=== PATIENT | male | born 1955 | race Caucasian/White ===

== ENCOUNTER 2016-06-23 07:11 | Day surgery (SDC) | payer OTHER ==
--- NOTE | 2016-06-22 14:19 | PCM.HPANE ---
Patient Data Surgeon Admitting Provider: Attending Provider:Hu Jain MD Primary Care Physician:Smooth Williamson MD Other Provider:[facility] Reason for Visit Ulcerative Colitis Ht/WT & BMI Body Mass Index Allergies Coded Allergies: Cephalosporins (Verified Allergy, Mild, Rash, 06/22/16) amoxicillin (Verified Allergy, Mild, Rash, 06/22/16) Penicillins (Verified Allergy, Unknown, 06/22/16) Past Anesthesia History Anesthesia History: Denies:: Abnormal Airway, Anesthesia Reactions, Difficult Intubation, Fam Anesthesia Reaction, Fam Malignant Hypertherm, Malignant Hyperthermia Diabetes History Hx Diabetes?: No MRSA MRSA: No Medications Reported Medications Ranitidine 150 Mg [id number] Mg PO DAILY Ref 0 06/22/16 HydrOXYzine HCl 10 Mg Ufhtjy48 Mg PO BID PRN For Itching Ref 0 06/22/16 Bupropion 100 Mg Zlltyv596 Mg PO BID Ref 0 06/22/16 Aripiprazole (Abilify)2 Mg Tablet2 Mg PO DAILY Ref 0 06/22/16 Acetaminophen (Tylenol)325 Mg [id number] Mg PO 08/28/14 Omeprazole Magnesium (Omeprazole)20 Mg Capsule.dr20 Mg PO DAILY 30 Days Ref 0 08/27/14 Aripiprazole (Abilify)5 Mg Tablet5 Mg PO DAILY 30 Days Ref 0 06/05/14 Citalopram 20 Mg Ugxdiz98 Mg PO DAILY 30 Days Ref 0 01/04/14 Multivitamin (Multi-Day Vitamins)1 Each Tablet1 Each PO DAILY 01/03/14 Lisinopril / HCTZ 20-12.5 mg 1 Each Tablet1 Each PO DAILY 30 Days Ref 0 01/03/14 Discontinued Reported Medications Hydrocortisone Acetate 25 Mg Supp.rect25 Mg RC DAILY 01/03/14 Trazodone 50 Mg Bisbjy13 Mg PO HS 30 Days Ref 0 06/05/14 History HEENT History: Denies:: Abnormal Airway Difficult Intubation Dysphagia Hearing Problem Hx of Heart Problems?: Yes Cardiovascular History: Positive for:: Chest Pain (NON-CARDIAC RELATED ) Hypertension Denies:: AICD Atrial Fibrillation Congestive Heart Failure Pacemaker Valvular Heart Disease Hx of Respiratory Problem?: No Respiratory History: Denies:: Asthma COPD Cough Hemoptysis Pneumonia Tuberculosis Neurological History: Denies:: CVA Hx of GI Problems?: Yes Gastrointestinal History: Positive for:: Gastroesphageal Reflux (TAKES OMEPRAZOLE ) Rectal Bleeding (BRBPR FROM HEMORRHOIDS ) Denies:: Cirrhosis Diverticulitis Hiatal Hernia Musculoskeletal History: Denies:: Joint Replacement Psycho Social History: Positive for:: Anxiety Hx Depression (CHRONIC ) Hx Surgeries?: Yes (BOIL REMOVAL ) Hx Any Other Health Problems?: Yes History Blood Transfusions: Denies:: Blood Transfuse Reaction Blood Transfusions Hx Diabetes: No Hx Alcohol Use: Yes (RARE)Hx Substance Use: No Smoking Status: Never Smoker Have You Smoked inLast 12 mo: No Stop/Bang Risk Assessment Category Category 1A: Patient has history of documented sleep apnea, and HAS NOT received any narcotic, sedative or anesthesia administration during this stay. Category 1B: Patient has history of documented sleep apnea, and HAS received any narcotic , sedative or anesthesia administration during this stay Category 2: Patient has SUSPECTED Obstructive Sleep Apnea, and HAS received any narcotic , sedative or anesthesia administration during this stay. Category 3: Patient has SUSPECTED Obstructive Sleep Apnea and HAS NOT received narcotic, sedative or anesthesia administration during this stay. Category 4: Outpatient in Procedural Areas with known sleep apnea or who screen positive for High Risk via the STOP/BANG questionnaire. Exam Exam General Appearance: Alert, Oriented X3 Plan Impression Patient chart reviewed. Aldo Byrne MD Jun 22, 2016 14:19
[~2016-06-23] VITALS: Ht 170.2 cm; Wt 135.0 kg
[~2016-06-23 07:11] MED LIST: ACET-1890 PO; ARIP2TAB10 PO; ARIP5TAB5 PO; BUPR100T15 PO; CITA20TA11 PO; HYDR-3605 PO; HYDR25SU7 RC; LISI1TAB9 PO; Lactated Ringer's 1,000 ML IV ONE; MULT-285 PO; OMEP-113 PO; RANI150C4 PO
[2016-06-23] MEDS ORDERED: Propofol 10,000 mCg/mL 20 mL Inj ONE (07:12)
[2016-06-23] MEDS ORDERED: fentaNYL-PF 50 mCg/mL 2 mL Inj ONE (07:12)
[2016-06-23 07:28] VITALS: BP 150/83; PULSE 73; RESP 14; O2SAT 95
[2016-06-23 08:53] VITALS: BP 135/69; PULSE 66; RESP 17; O2SAT 96
[2016-06-23] MEDS ORDERED: Lactated Ringer's 1,000 ML IV SCH (08:54)
--- NOTE | 2016-06-23 08:54 | PCM.ANEP1 ---
Post Anesthesia Phase 1 PACU Phase 1 Assessment Vital Signs Vital Signs Date Time Temp Pulse Resp B/P Pulse Ox O2 Delivery O2 Flow Rate FiO2 06/23/16 07:28 73 14 150/83 95 Room Air Anesthetic Administered: GA Level of Alertness: Awake, talking JEAN's with Equal Strength: Yes Pain: No Nausea or Vomiting: No Oxygen Delivery: Room Air Lungs: Normal Air Movement Aldo Byrne MD Jun 23, 2016 08:54
[2016-06-23] MEDS ORDERED: Ondansetron 2 mg/mL 2 mL Inj IVPUSH PRN (08:55)
[2016-06-23] MEDS ORDERED: MetoCLOpramide 5 mg/mL 2 mL Inj IVPUSH PRN (08:55)
--- NOTE | 2016-06-23 08:55 | PCM.ANEP2 ---
Post Anesthesia Evaluation ASA/CMS Post Anesthesia VS in Patient's Normal Range?: Yes Resp Stable; Airway Patent?: Yes CV Function & Hydration Stable: Yes Mental Status Recovered?: Yes Pain control Satisfactory?: Yes N/V Control Satisfactory?: Yes Aldo Byrne MD Jun 23, 2016 08:55
[2016-06-23 09:10] VITALS: BP 161/86; PULSE 68; RESP 14; O2SAT 97
--- NOTE | 2016-06-23 09:13 | ENDO ---
[address] [address] ENDOSCOPY PROCEDURE PATIENT: KEITH MCKEON : 1955 MR#: [id number] ADMIT: 06/23/2016 JOB ID: [id number] DATE OF SERVICE: 06/23/2016 PRIMARY PROVIDER: Smooth Williamson MD. PROCEDURE: Colonoscopy with hot snare polypectomy and random biopsies. INDICATIONS: A 61-year-old male with a longstanding history of ulcerative colitis and a personal history of colon polyps. EQUIPMENT: [id number]. SEDATION: Monitored anesthesia as provided by Dr. Chris Byrne. COMPLICATIONS: None identified. BOWEL PREPARATION: Fair, adequate exam. PROCEDURE INFORMATION: After the risks and benefits were explained, written and verbal informed consent was obtained. The patient was brought into the endoscopy suite and placed into the left lateral decubitus position. Sedation was achieved using the above-stated medications with the addition of oxygen via nasal cannula. A digital rectal examination was accomplished. Mild internal hemorrhoids noted. The scope was introduced into the rectum and advanced to the cecum as identified by the appendiceal orifice and ileocecal valve. The scope was slowly withdrawn to carefully examine the mucosa for any defects or lesions. Retroflexed views were accomplished in the rectum. The colon was decompressed. The scope removed from the patient who tolerated the procedure well. FINDINGS: No evidence of proctitis. No colitis throughout. Segmental biopsies were taken from the ascending, transverse, descending, sigmoid and finally rectum and submitted separately. There was an approximately 8-9 mm sessile polyp removed with hot snare from the cecum. There were three smaller polyps removed from the vicinity of the hepatic flexure also with hot snare. We used a combination of the standard and jumbo snares for these polyps. No other significant pathology was appreciated throughout. ENDOSCOPIC DIAGNOSES: 1. Multiple colon polyps. 2. Hemorrhoids with hypertrophied anal papillae (not mentioned above). 3. No evidence of visual proctocolitis. RECOMMENDATIONS: 1. Await histopathology. 2. Repeat colonoscopy will likely be suggested for two years' time.
[2016-06-23 09:21] VITALS: BP 167/88; PULSE 65; RESP 14; O2SAT 96
--- NOTE | 2016-06-25 11:01 | PATH ---
SURGICAL PATHOLOGY Attending Physician:Татьяна Vega CASE STATUS: Signed Out PATIENT NAME: KEITH MCKEON PID: [id number] : 1955 DATE COLLECTED:06/23/2016 17:41 SPECIMEN: 1: Colon, Biopsy 2: Colon, Biopsy 3: Colon, Biopsy 4: Colon, Biopsy 5: Rectum, Biopsy 6: Colon, Biopsy 7: Colon, Biopsy CLINICAL HISTORY: A: ASCENDING COLON BX B: TRANSVERSE COLON BX C: DESCENDING COLON BX D: SIGMOID COLON BX E: RECTAL BX F: HEPATIC FLEXURE POLYPS X3 G: CECAL POLYP X1 HISTORY OF ULCERATIVE COLITIS FINAL DIAGNOSIS: 1.ASCENDING COLON BIOPSY: COLONIC MUCOSA WITH NO DIAGNOSTIC ALTERATIONS. Negative for inflammation, dysplasia and malignancy. 2.TRANSVERSE COLON BIOPSY: COLONIC MUCOSA WITH NO DIAGNOSTIC ALTERATIONS. Negative for inflammation, dysplasia and malignancy. 3.DESCENDING COLON BIOPSY: COLONIC MUCOSA WITH NO DIAGNOSTIC ALTERATIONS. Negative for inflammation, dysplasia and malignancy. 4.SIGMOID COLON BIOPSY: COLONIC MUCOSA WITH MILD ARCHITECTURAL CHANGES, CONSISTENT WITH QUIESCENT COLITIS. Negative for dysplasia and malignancy. 5.RECTAL BIOPSY: COLONIC MUCOSA WITH MILD ARCHITECTURAL CHANGES CONSISTENT WITH QUIESCENT COLITIS. Negative for dysplasia and malignancy. 6.HEPATIC FLEXURE POLYPS: SESSILE SERRATED ADENOMA, 1. ADENOMA-LIKE LESION, 1, SEE COMMENT. 7.CECAL POLYP: BENIGN COLONIC MUCOSA WITH ARCHITECTURAL CHANGES, CONSISTENT WITH PSEUDOPOLYP. Negative for dysplasia and malignancy. Multiple microscopic levels examined. ICD10 codes D12.3 K63.5 K51.9 NOTE: Two polypoid lesions were identified in the biopsy from the hepatic flexure (specimen 6). One is a serrated lesion with dilated crypt bases without conventional cytologic dysplasia. The differential diagnosis includes a sporadic sessile serrated adenoma or a serrated lesion indefinite for dysplasia in the setting of IBD. The natural history of these lesions in the setting of IBD is uncertain. In this case, a sporadic sessile serrated adenoma is favored. The second polypoid lesion shows polypoid low-grade dysplasia, with a differential diagnosis of sporadic tubular adenoma or dysplasia arising from IBD. It is not possible on morphologic grounds alone to distinguish these possibilities, but a sporadic adenoma is favored given the paucity of IBD changes in the rest of the biopsies. GROSS DESCRIPTION: The specimen is received in seven formalin filled containers labeled with the patient's name. 1). The specimen is sublabeled "ascending colon" and consists of 2 portions of tissue which aggregate to 0.3 x 0.2 x 0.2 CM. The specimen is entirely submitted in cassette 1A. 2). The specimen is sublabeled "transverse colon" and consists of 2 portions of tissue which aggregate to 0.4 x 0.3 x 0.2 CM. The specimen is entirely submitted in cassette 2A. 3). The specimen is sublabeled "descending colon" and consists of 2 portions of tissue which aggregate to 0.4 x 0.3 x 0.2 CM. The specimen is entirely submitted in cassette 3A. 4). The specimen is sublabeled "sigmoid colon" and consists of 2 portions of tissue which aggregate to 0.4 x 0.3 x 0.2 CM. The specimen is entirely submitted in cassette 4A. 5). The specimen is sublabeled "rectal" and consists of 2 portions of tissue which aggregate to 0.3 x 0.3 x 0.2 CM. The specimen is entirely submitted in cassette 5A. 6). The specimen is sublabeled "hepatic flexure polyps" and consists of 2 portions of tissue and possible debris which aggregate to 0.6 x 0.4 x 0.4 CM. The specimen is entirely submitted in cassette 6A. 7). The specimen is sublabeled "cecal polyp" and consists of a 0.6 x 0.5 x 0.5 CM portion of tissue and possible debris. The specimen is entirely submitted in cassette 7A. 06/23/2016 [facility] ICD-9 CODES: CPT CODES: 1: 55524 2: 94152 3: 33351 4: 53517 5: 15521 6: 53331 7: 79890 Electronically Signed Out Deanna Butts MD Merged With [facility], [place] [address] Technical component performed at [facility], [address], [place], [address]
== END 2016-06-23 23:59 | disposition home or self-care (01) ==
LOC: END 07:11
PROVIDERS: ATTEND Internal Medicine Gastroenterology
DX: D12.5 Benign neoplasm of sigmoid colon (principal); K63.5 Polyp of colon; K51.90 Ulcerative colitis, unspecified, without complications; K64.8 Other hemorrhoids; K62.89 Other specified diseases of anus and rectum; I10 Essential (primary) hypertension
CPT/HCPCS: 45380; 45385; 88305; J2250; J7120